=== PATIENT | male | born 1940 | race Caucasian/White ===

== ENCOUNTER 2019-06-26 16:52 | Emergency (ER) | payer OTHER ==
[2019-06-26 17:55] VITALS: BP 162/78; TEMP 98.1; BMI 26.4
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
[2019-06-26] MEDS ORDERED: IBUPROFEN 600 MG TABLET (FP) PO PRN (20:30)
[2019-06-26] MEDS ORDERED: IBUPROFEN 600 MG TABLET (FP) PO ONE (21:15)
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
[2019-06-27 00:23] VITALS: PULSE 88
== END 2019-06-27 02:39 | disposition home or self-care (01) ==
LOC: JER 16:52
DX: S00.83XA Contusion of other part of head, initial encounter (principal); V49.49XA Driver injured in collision with other motor vehicles in traffic accident, initial encounter; Y92.488 Other paved roadways as the place of occurrence of the external cause; Y93.89 Activity, other specified; Y99.8 Other external cause status; E78.5 Hyperlipidemia, unspecified; Z96.653 Presence of artificial knee joint, bilateral
CPT/HCPCS: 70450-TC; 71046-TC-FY; 99283-25